=== PATIENT | female | born 1980 | race Caucasian/White ===

== ENCOUNTER 2019-06-11 14:27 | Emergency (ER) | payer MEDICAID ==
[~2019-06-11] VITALS: Ht 157.5 cm; Wt 83.5 kg
[2019-06-11 14:34] VITALS: Ht 157.5 cm; Wt 83.5 kg
[2019-06-11 16:53] VITALS: BP 123/78
== END 2019-06-11 16:53 | disposition home or self-care (01) ==
LOC: ED 14:27
DX: J98.01 Acute bronchospasm (principal); R50.9 Fever, unspecified; Z90.12 Acquired absence of left breast and nipple; Z90.721 Acquired absence of ovaries, unilateral
CPT/HCPCS: 87804; J7030; Q0092; U0002

== ENCOUNTER 2019-06-17 15:57 | Emergency (ER) | payer MEDICAID ==
[~2019-06-17] VITALS: Ht 157.5 cm; Wt 84.0 kg
[2019-06-17 16:03] VITALS: Ht 157.5 cm; Wt 84.0 kg
[2019-06-17 16:52] LABS: BASOPHIL % 0.7 % (0-2)
[2019-06-17 16:57] LABS: PLATELET COUNT 473 x10^3mcL (130-400); RED CELL DISTRIBUTION WIDTH 33.4 % (11.5-14.5)
[2019-06-17 17:15] LABS: CALCIUM 8.7 mg/dL (8.5-10.1); CARBON DIOXIDE 26.3 mmol/L (21-32); CHLORIDE SERUM 105 mmol/L (98-107); CREATININE SERUM 0.7 mg/dL (0.6-1.0); GFR1 > 60 mL/min; GLUCOSE SERUM 142 mg/dL (74-106); POTASSIUM SERUM 4.2 mmol/L (3.5-5.1); SODIUM SERUM 140 mmol/L (136-145)
[2019-06-17 17:16] LABS: rbc morphology (normal/abnorm) ABNORMAL (NORMAL)
[2019-06-17 17:17] LABS: schistocyte (helmet cell) 1+
[2019-06-17 17:46] VITALS: BP 121/73
== END 2019-06-17 17:40 | disposition home or self-care (01) ==
LOC: ED 15:57
PROVIDERS: Emergency Medicine
DX: N92.0 Excessive and frequent menstruation with regular cycle (principal); D64.9 Anemia, unspecified; R03.0 Elevated blood-pressure reading, without diagnosis of hypertension; Z88.1 Allergy status to other antibiotic agents; Z98.890 Other specified postprocedural states
CPT/HCPCS: 36415